=== PATIENT | male | born 1940 | race Two or more races ===

== ENCOUNTER 2024-09-10 09:19 | Outpatient (AMB) | payer MEDICARE, SELFPAY ==
--- NOTE | 2024-09-10 09:40 | MHC.OFFVIS ---
Vital Signs 09/10/24 09:40 Height 5 ft 3 in Intake Visit Reasons: 6 mnts lbd Accompanied by: Family/Other Allergies No Known Allergies Allergy (Verified 09/10/24 09:46) Medication List - Last Reconciled 09/10/24 by Kerry Schofield CNP alendronate (Fosamax) 70 mg PO QWEEK aspirin 81 mg PO DAILY atorvastatin (Lipitor) 40 mg PO DAILY calcium citrate 200 mg PO DAILY celecoxib (Celebrex) 200 mg PO BID cholecalciferol (vitamin D3) 50 mcg PO DAILY gabapentin 300 mg PO BEDTIME mecobalamin (vitamin B12) 5,000 mcg PO DAILY paroxetine HCl 20 mg PO DAILY tamsulosin 0.4 mg PO DAILY tolterodine ER 2 mg PO DAILY HPI Comments Details: 83 yo man probably with BIN on CPAP, dementia with Lewy bodies, and REM sleep behavior disorder. He was found to have L5 fracture in 09/2023. He was not a surgical candidate and was in rehab for few months. Memory was declining some. He was more forgetful. He was also having some trouble with word finding. He was walking with walker at home, no falls. Completed PT earlier this month. Sleep was okay, uses CPAP. His noted that he was still talking in his sleep and would sometimes move his arms around. He was sleeping in hospital bed which had railings. Mood was okay. No agitation. [facility] Medical History (Updated 09/10/24 @ 09:44 by Kerry Schofield CNP) HLD (hyperlipidemia) REM sleep behavior disorder BIN on CPAP Dementia with Lewy bodies Review of Systems Const Denies chills, Denies daytime sleepiness, Denies difficulty sleeping, Denies fatigue, Denies fever(s), Denies frequent falls, Denies headache(s), Denies increased appetite, Denies poor appetite, Denies snoring, Denies weakness, Denies weight gain and Denies weight loss Eyes Denies loss of vision ENT Denies vertigo, Denies dizziness and Denies headache(s) Card Denies chest pain at rest, Denies chest pain with activity, Denies syncope, Denies leg edema and Denies palpitations Resp Denies snoring GI Denies constipation, Denies heartburn, Denies diarrhea and Denies nausea Denies urinary frequency, Denies urinary incontinence and Denies urinary urgency Musc Denies abnormal gait, Denies numbness and Denies tingling Skin/Breast Denies dry skin and Denies rash Neuro Denies abnormal gait, Denies vertigo, Denies dizziness, Denies syncope, Denies frequent falls, Denies headache(s), Denies lack of coordination, Denies loss of vision, Reports memory loss, Denies numbness, Denies restless legs, Denies seizure-like activity, Denies tingling, Denies paresthesias, Denies tremor(s) and Denies weakness Psych Denies anxiety, Denies depression, Denies auditory hallucinations, Reports memory loss, Denies visual hallucinations and Denies suicidal ideation Endo Denies fatigue and Denies palpitations Physical Exam Const Other: General Appearance:? normal, in no acute distress. Skin:? no rashes, no significant birthmarks. Heart:? S1, S2 normal, no murmurs. Lungs:? clear anteriorly and posteriorly. Extremities:? no edema. Psych:? alert, cooperative with exam. Neuro Other: Mental Status:?Alert, flat affect. He was able to tell me that he was here with his and daughter. He was able to tell me his age. Cranial Nerves:?Pupils are equal, round and reactive to light. External occular muscles are intact. Visual bello are full. Face is symmetrical. Facial sensations are normal. Tongue is midline. Palate elevates symmetrically. Shoulder shrugging is normal. Hearing to bedside conversation is normal. Sensory Exam:?....? Coordination:?No ataxia,?no titubation.? Gait Exam: Wheelchair. Cerebellar Signs:?[id number] is okay. Extrapyramidal System:?Decreased facial expression and blinking. Mild generalized bradykinesia. Mild bilateral cogwheeling rigidity with reinforcement. Pronator Drift:?Not present.? Involuntary Movements:?No significant tremor Speech:?Normal.? Assessment & Plan Assessment & Plan (1) Dementia with Lewy bodies: Code(s): G31.83 - Neurocognitive disorder with Lewy bodies; F02.80 - Dementia in other diseases classified elsewhere, unspecified severity, without behavioral disturbance, psychotic disturbance, mood disturbance, and anxiety Category: Medical Qualifiers: Dementia severity: unspecified severity Dementia behavioral or psychological symptom: unspecified whether behavioral, psychotic, or mood disturbance or anxiety Qualified Code(s): G31.83 - Neurocognitive disorder with Lewy bodies; F02.80 - Dementia in other diseases classified elsewhere, unspecified severity, without behavioral disturbance, psychotic disturbance, mood disturbance, and anxiety Plan: He was here with family. They were interested in starting medication for memory. Start memantine 5mg twice a day, use/side effects reviewed. Continue gabapentin 300mg 1 capsule at bedtime. (2) REM sleep behavior disorder: Code(s): G47.52 - REM sleep behavior disorder Category: Medical (3) BIN on CPAP: Code(s): G47.33 - Obstructive sleep apnea (adult) (pediatric) Category: Medical Plan . Medications: New memantine (Namenda) 5 mg PO BID 180 tabs 0RF 90 days gabapentin 300 mg PO BEDTIME 90 caps 1RF 90 days Discontinued gabapentin Discontinued Reason: Order 300 mg PO BEDTIME Coding Level of Care Code Est Pt Level 4 (94559) Diagnoses Lewy body dementia, unspecified dementia severity, unspecified whether behavioral, psychotic, or mood disturbance or anxiety G31.83; F02.80 Dementia severity: unspecified severity Dementia behavioral or psychological symptom: unspecified whether behavioral, psychotic, or mood disturbance or anxiety REM sleep behavior disorder G47.52 BIN on CPAP G47.33
== END 2024-09-10 09:58 | disposition home or self-care (01) ==
PROVIDERS: PCP Internal Medicine; Visit Provider Registered Nurse
DX: G31.83 Neurocognitive disorder with Lewy bodies (principal); F02.80 Dementia in other diseases classified elsewhere, unspecified severity, without behavioral disturbance, psychotic disturbance, mood disturbance, and anxiety; G47.52 REM sleep behavior disorder; G47.33 Obstructive sleep apnea (adult) (pediatric)
CPT/HCPCS: 99214

== ENCOUNTER → 2024-09-10 09:19 | Outpatient (BNVA) | payer MEDICARE, SELFPAY | PROVIDERS: PCP Internal Medicine; Visit Provider Registered Nurse | DX: G31.83 Neurocognitive disorder with Lewy bodies (principal); F02.80 Dementia in other diseases classified elsewhere, unspecified severity, without behavioral disturbance, psychotic disturbance, mood disturbance, and anxiety; G47.52 REM sleep behavior disorder; G47.33 Obstructive sleep apnea (adult) (pediatric) | CPT/HCPCS: 99212 ==

== ENCOUNTER 2024-12-10 10:35 | Outpatient (AMB) | payer MEDICARE, SELFPAY ==
--- NOTE | 2024-12-10 10:38 | MHC.OFFVIS ---
Intake Visit Reasons: Dementia with lewy bodies Accompanied by: Family/Other Allergies No Known Allergies Allergy (Verified 12/10/24 10:39) Medication List - Last Reconciled 12/10/24 by Kerry Schofield CNP alendronate (Fosamax) 70 mg PO QWEEK aspirin 81 mg PO DAILY atorvastatin (Lipitor) 40 mg PO DAILY calcium citrate 200 mg PO DAILY celecoxib (Celebrex) 200 mg PO BID cholecalciferol (vitamin D3) 50 mcg PO DAILY gabapentin 300 mg PO BEDTIME 90 days mecobalamin (vitamin B12) 5,000 mcg PO DAILY memantine (Namenda) 5 mg PO BID 90 days paroxetine HCl 20 mg PO DAILY tamsulosin 0.4 mg PO DAILY vit C,R-Tm-wfsfe-lutein-zeaxan 250-90-40-1 mg (PreserVision AREDS-2) 1 tab PO BID HPI Comments Details: 84-year-old man probably with BIN on CPAP, dementia with Lewy bodies, and REM sleep behavior disorder. He was found to have L5 fracture in 09/2023. He was not a surgical candidate and was in rehab for few months. He was doing okay. Family noticed improvement since starting memantine. No medication side effect. Memory seemed to be a bit sharper and he was not having as much trouble with word finding. He was walking with walker, no falls.Sleep was okay, uses CPAP. His noted that he was still talking in his sleep and would sometimes move his arms around. [facility] Medical History (Updated 12/10/24 @ 10:45 by Kerry Schofield CNP) Macular degeneration HLD (hyperlipidemia) REM sleep behavior disorder BIN on CPAP Dementia with Lewy bodies Review of Systems Const Denies chills, Denies daytime sleepiness, Denies difficulty sleeping, Denies fatigue, Denies fever(s), Denies frequent falls, Denies headache(s), Denies increased appetite, Denies poor appetite, Denies snoring, Denies weakness, Denies weight gain and Denies weight loss Eyes Denies loss of vision ENT Denies vertigo, Denies dizziness and Denies headache(s) Card Denies chest pain at rest, Denies chest pain with activity, Denies syncope, Denies leg edema and Denies palpitations Resp Denies snoring GI Denies constipation, Denies heartburn, Denies diarrhea and Denies nausea Denies urinary frequency, Denies urinary incontinence and Denies urinary urgency Musc Denies abnormal gait, Denies numbness and Denies tingling Skin/Breast Denies dry skin and Denies rash Neuro Denies abnormal gait, Denies vertigo, Denies dizziness, Denies syncope, Denies frequent falls, Denies headache(s), Denies lack of coordination, Denies loss of vision, Reports memory loss, Denies numbness, Denies restless legs, Denies seizure-like activity, Denies tingling, Denies paresthesias, Denies tremor(s) and Denies weakness Psych Denies anxiety, Denies depression, Denies auditory hallucinations, Reports memory loss, Denies visual hallucinations and Denies suicidal ideation Endo Denies fatigue and Denies palpitations Physical Exam Const Other: General Appearance:? normal, in no acute distress. Skin:? no rashes, no significant birthmarks. Heart:? S1, S2 normal, no murmurs. Lungs:? clear anteriorly and posteriorly. Extremities:? no edema. Psych:? alert, cooperative with exam. Neuro Other: Mental Status:?Alert, flat affect. He was able to tell me that he was here with his and daughter. He was able to tell me his age and birthday. Cranial Nerves:?Pupils are equal, round and reactive to light. External occular muscles are intact. Visual bello are full. Face is symmetrical. Facial sensations are normal. Tongue is midline. Palate elevates symmetrically. Shoulder shrugging is normal. Hearing to bedside conversation is normal. Sensory Exam:?....? Coordination:?No ataxia,?no titubation.? Gait Exam: Walking with walker. Cerebellar Signs:?[id number] is okay. Extrapyramidal System:?Decreased facial expression and blinking. Mild generalized bradykinesia. Mild bilateral cogwheeling rigidity with reinforcement. Pronator Drift:?Not present.? Involuntary Movements:?No significant tremor Speech:?Normal.? Assessment & Plan Assessment & Plan (1) Dementia with Lewy bodies: Code(s): G31.83 - Neurocognitive disorder with Lewy bodies; F02.80 - Dementia in other diseases classified elsewhere, unspecified severity, without behavioral disturbance, psychotic disturbance, mood disturbance, and anxiety Category: Medical Qualifiers: Dementia severity: unspecified severity Dementia behavioral or psychological symptom: unspecified whether behavioral, psychotic, or mood disturbance or anxiety Qualified Code(s): G31.83 - Neurocognitive disorder with Lewy bodies; F02.80 - Dementia in other diseases classified elsewhere, unspecified severity, without behavioral disturbance, psychotic disturbance, mood disturbance, and anxiety Plan: He was here with his and daughter. Continue memantine 5mg 1 tablet twice a day. Continue gabapentin 300mg 1 capsule at bedtime. (2) REM sleep behavior disorder: Code(s): G47.52 - REM sleep behavior disorder Category: Medical (3) BIN on CPAP: Code(s): G47.33 - Obstructive sleep apnea (adult) (pediatric) Category: Medical Plan . Medications: Refilled gabapentin 300 mg PO BEDTIME 90 caps 1RF 90 days memantine (Namenda) 5 mg PO BID 180 tabs 1RF 90 days Coding Level of Care Code Est Pt Level 4 (80131) Diagnoses Lewy body dementia, unspecified dementia severity, unspecified whether behavioral, psychotic, or mood disturbance or anxiety G31.83; F02.80 Dementia severity: unspecified severity Dementia behavioral or psychological symptom: unspecified whether behavioral, psychotic, or mood disturbance or anxiety REM sleep behavior disorder G47.52 BIN on CPAP G47.33
== END 2024-12-10 10:49 | disposition home or self-care (01) ==
LOC: HO.HSM 10:35
PROVIDERS: PCP Internal Medicine; Visit Provider Registered Nurse
DX: G31.83 Neurocognitive disorder with Lewy bodies (principal); F02.80 Dementia in other diseases classified elsewhere, unspecified severity, without behavioral disturbance, psychotic disturbance, mood disturbance, and anxiety; G47.52 REM sleep behavior disorder; G47.33 Obstructive sleep apnea (adult) (pediatric)
CPT/HCPCS: 99214

== ENCOUNTER → 2024-12-10 10:35 | Outpatient (BNVA) | payer MEDICARE, SELFPAY | PROVIDERS: PCP Internal Medicine; Visit Provider Registered Nurse | DX: G31.83 Neurocognitive disorder with Lewy bodies (principal); F02.80 Dementia in other diseases classified elsewhere, unspecified severity, without behavioral disturbance, psychotic disturbance, mood disturbance, and anxiety; G47.52 REM sleep behavior disorder; G47.33 Obstructive sleep apnea (adult) (pediatric); Z99.89 Dependence on other enabling machines and devices | CPT/HCPCS: 99212 ==